=== PATIENT | male | born 1985 | race Caucasian/White ===

== ENCOUNTER 2016-11-17 00:31 | Emergency (ER) | payer MEDICAID ==
[~2016-11-17] VITALS: Ht 165.1 cm; Wt 54.0 kg
[2016-11-17 02:18] VITALS: BP 113/67
== END 2016-11-17 02:47 | disposition home or self-care (01) ==
LOC: EMS 00:34
DX: R06.02 Shortness of breath (principal); F17.210 Nicotine dependence, cigarettes, uncomplicated
CPT/HCPCS: 71020; 99284

== ENCOUNTER 2021-05-03 03:04 | Emergency (ER) | payer SELFPAY ==
[~2021-05-03] VITALS: Ht 170.2 cm; Wt 58.0 kg
[2021-05-03] MEDS ORDERED: IBUPROFEN 600 MG TABLET PO ONE (03:15)
[2021-05-03] MEDS ORDERED: PROPARACAINE HCL 0.5% 15 ML OPHTHALMIC SOLUTION OS ONE (03:15)
[2021-05-03] MEDS ORDERED: FLUORESCEIN SODIUM 1 MG STRIP OS ONE (03:15)
[2021-05-03 04:15] VITALS: BP 118/71
[2021-05-03] MEDS ORDERED: OFLOXACIN 0.3% 5 ML OPHTHALMIC SOLUTION OS ONE (04:15)
[2021-05-03] MEDS ORDERED: OFLO35OS OS (04:31)
== END 2021-05-03 04:46 | disposition home or self-care (01) ==
LOC: EMS 03:04
DX: S05.02XA Injury of conjunctiva and corneal abrasion without foreign body, left eye, initial encounter (principal); X58.XXXA Exposure to other specified factors, initial encounter; Y93.89 Activity, other specified; Y92.89 Other specified places as the place of occurrence of the external cause; Y99.8 Other external cause status
CPT/HCPCS: 99284; Z7502; Z7610